=== PATIENT | female | born 1995 | race American Indian/Alaskan Native ===

== ENCOUNTER 2022-05-05 15:13 | Emergency (ER) | payer BC ==
[~2022-05-05] VITALS: Ht 157.5 cm; Wt 50.8 kg
[2022-05-05 15:16] VITALS: BP 136/86
[2022-05-05] MEDS: NACL 0.9% 500 ML IV ONE (15:41)
[2022-05-05] MEDS: EPINEPHrine 1 MG/ML AMP IM ONE (15:43)
[2022-05-05] MEDS: diphenhydrAMINE 50 MG/ML VIAL IVP ONE (15:44)
[2022-05-05] MEDS: methylPREDNISolone SS 125 MG/2 ML VIAL IVP ONE (15:46)
[2022-05-05] MEDS ORDERED: EPIN1KIT31 IM (17:24)
[2022-05-05] MEDS ORDERED: DIPH25TA53 PO (17:27)
[2022-05-05] MEDS ORDERED: PRED20TA5 PO (17:29)
[2022-05-05 17:42] VITALS: BP 92/38
== END 2022-05-05 17:42 | disposition home or self-care (01) ==
LOC: MED 15:13
DX: T78.2XXA Anaphylactic shock, unspecified, initial encounter (principal); R50.9 Fever, unspecified; Z79.899 Other long term (current) drug therapy
CPT/HCPCS: 96361; 96372; 96374; 96375; 99291; 99292; J0171; J1200; J2930; J7030; 99284